=== PATIENT | female | born 1980 | race Two or more races ===

== ENCOUNTER 2017-03-15 21:10 | Inpatient (IN) | payer SELFPAY ==
[~2017-03-15] VITALS: Ht 162.6 cm; Wt 100.0 kg
[2017-03-15] MEDS ORDERED: ACETAMINOPHEN 325 MG TAB PO ONE (21:30)
[2017-03-15 22:02] LABS: Basophils # (auto) 0.1 uL; Basophils % (auto) 0.6 % (0.0-2.0); CONDITION Y; Eosinophils # (auto) 0.1 uL; Eosinophils % (auto) 0.6 % (0.0-7.0); Hematocrit 41.7 % (36.0-46.0); Hemoglobin 14.1 g/dL (12.2-16.2); Lymphocytes # (auto) 2.9 uL; Lymphocytes % (auto) 20.7 % (10.0-50.0); Mean Corpuscular Hemoglobin 30.3 pg (28.0-32.0); Mean Corpuscular Hgb Conc. 33.8 g/dL (32.0-36.0); Mean Corpuscular Volume 89.6 fL (80.0-100.0); Mean Platelet Volume 9.7 fL (7.4-10.4); Monocytes # (auto) 0.5 uL; Monocytes % (auto) 3.7 % (0.0-12.0); Neutrophils # (auto) 10.3 uL; Neutrophils % (auto) 74.4 % (37.0-80.0); Platelet Count (auto) 253 10^3/uL (140-450); Red Cell Distribution Width 12.9 % (11.6-16.0); White Blood Cell 13.8 10^3/uL (4.4-10.8)
[2017-03-15] MEDS ORDERED: SODIUM CHLORIDE 0.9% 1,000 ML IV ONE ×2 (22:15→23:00)
[2017-03-15 22:22] LABS: Albumin 3.7 g/dL (3.4-5.0); BUN/Creatinine Ratio 10.9; Calcium 8.9 mg/dL (8.5-10.1); Potassium 3.6 mmol/L (3.5-5.1)
[2017-03-15 22:25] LABS: INR 0.91 (0.9-1.15); Partial Thromboplastin Time 27.5 sec (22.64-33.71); Prothrombin Time 9.9 sec (9.37-12.3)
[2017-03-15] MEDS ORDERED: VANCOMYCIN 1GM/250ML D5W 250 ML IV ONE (22:30)
[2017-03-15] MEDS ORDERED: ONDANSETRON HCL 4 MG/2 ML VIAL IV ONE (22:30)
[2017-03-15] MEDS ORDERED: HYDROmorphone HCL 2 MG/ML VL IV ONE (22:30)
[2017-03-15] MEDS ORDERED: cefTRIAXone 1GM/50ML D5W 50 ML IV ONE (22:30)
[2017-03-15 22:38] LABS: Bilirubin, Total 1.8 mg/dL (0.2-1.0); Total Protein 8.1 g/dL (6.4-8.2)
[2017-03-16] MEDS ORDERED: LORazepam 0.5 MG TAB PO PRN (03:15)
[2017-03-16] MEDS ORDERED: ONDANSETRON HCL 4 MG/2 ML VIAL IV PRN (03:15)
[2017-03-16] MEDS ORDERED: ACETAMINOPHEN 325 MG TAB PO PRN (03:15)
[2017-03-16 04:49] LABS: Urine Bilirubin Negative (Negative); Urine Blood Negative /uL (Negative); Urine Color Yellow (Yellow); Urine Glucose Normal (Normal); Urine Granular Cast FEW /lpf (0); Urine Ketone Negative (Negative); Urine Mucus FEW (None Seen); Urine Nitrite Negative (Negative); Urine RBC 4 /hpf (0 - 4); Urine Squamous Epithelial Cell FEW /hpf (<5)
[2017-03-16] MEDS: VANCOMYCIN 1GM/250ML D5W 250 ML IV SCH ×3 (07:45→23:45)
[2017-03-16 07:57] LABS: BUN/Creatinine Ratio 13.6; Potassium 3.6 mmol/L (3.5-5.1)
[2017-03-16 08:00] LABS: Bilirubin, Total 0.8 mg/dL (0.2-1.0); Total Protein 6.7 g/dL (6.4-8.2)
[2017-03-16] MEDS: HYDROcodone-ACET 5/325MG TAB PO PRN ×2 (09:00→13:37)
[2017-03-16 09:40] VITALS: BP 121/80
[2017-03-16 09:57] VITALS: BP 121/80
[2017-03-16] MEDS ORDERED: ENOXAPARIN SOD 30 MG/0.3 ML SYRINGE SC SCH (10:00)
[2017-03-16] MEDS: ENOXAPARIN SOD 40 MG/0.4 ML SYRINGE SC SCH (10:00)
[2017-03-16] MEDS: FAMOTIDINE 20 MG TAB PO SCH ×2 (10:00→21:57)
[2017-03-16] MEDS ORDERED: VANCOMYCIN PER PHARMACY 0 MG IV SCH (11:00)
[2017-03-16 12:42] VITALS: BP 120/69
[2017-03-16] MEDS: MORPHINE SULF INJ 2 MG/ML SYRINGE 1ML IV PRN ×2 (13:42→18:30)
[2017-03-16 16:37] VITALS: BP 138/75
[2017-03-16 20:00] VITALS: BP 114/63
[2017-03-16 22:00] VITALS: BP 114/63
[2017-03-16] MEDS ORDERED: cefTRIAXone 1GM/50ML D5W 50 ML IV SCH (22:00)
[2017-03-17] MEDS ORDERED: ZOLPIDEM TARTRATE 5 MG TAB PO PRN (00:30)
[2017-03-17 04:48] VITALS: BP 104/46
[2017-03-17] MEDS: MORPHINE SULF INJ 2 MG/ML SYRINGE 1ML IV PRN (05:29)
[2017-03-17 06:14] LABS: Basophils # (auto) 0 uL; Basophils % (auto) 0.4 % (0.0-2.0); CONDITION Y; Eosinophils # (auto) 0.2 uL; Eosinophils % (auto) 1.8 % (0.0-7.0); Hematocrit 37.7 % (36.0-46.0); Hemoglobin 12.8 g/dL (12.2-16.2); Lymphocytes # (auto) 3.2 uL; Lymphocytes % (auto) 31.4 % (10.0-50.0); Mean Corpuscular Hemoglobin 30.4 pg (28.0-32.0); Mean Corpuscular Volume 89.5 fL (80.0-100.0); Mean Platelet Volume 10.1 fL (7.4-10.4); Monocytes # (auto) 0.6 uL; Monocytes % (auto) 6.1 % (0.0-12.0); Neutrophils # (auto) 6.2 uL; Neutrophils % (auto) 60.3 % (37.0-80.0); Platelet Count (auto) 245 10^3/uL (140-450); Red Cell Distribution Width 12.7 % (11.6-16.0); White Blood Cell 10.3 10^3/uL (4.4-10.8)
[2017-03-17 06:43] LABS: BUN/Creatinine Ratio 10.3; Bilirubin, Total 0.6 mg/dL (0.2-1.0); Calcium 8.4 mg/dL (8.5-10.1); Total Protein 6.7 g/dL (6.4-8.2)
[2017-03-17] MEDS: VANCOMYCIN 1GM/250ML D5W 250 ML IV SCH (08:18)
[2017-03-17 09:00] VITALS: BP 122/61
[2017-03-17] MEDS: FAMOTIDINE 20 MG TAB PO SCH (09:50)
[2017-03-17] MEDS: ENOXAPARIN SOD 40 MG/0.4 ML SYRINGE SC SCH (09:50)
== END 2017-03-17 14:03 | disposition left against medical advice (07) | DRG 603 ==
LOC: ER 21:20 → OVERFLOW 21:21 → EAST 03-16 08:55 → WEST WING 03-16 12:19
PROVIDERS: ADMIT Internal Medicine; ATTEND Internal Medicine Pulmonary Disease
DX: L02.412 Cutaneous abscess of left axilla (principal); L03.112 Cellulitis of left axilla; E66.01 Morbid (severe) obesity due to excess calories; Z68.37 Body mass index [BMI] 37.0-37.9, adult; F17.210 Nicotine dependence, cigarettes, uncomplicated; F32.9 Major depressive disorder, single episode, unspecified; F41.9 Anxiety disorder, unspecified; Z71.89 Other specified counseling; Z53.21 Procedure and treatment not carried out due to patient leaving prior to being seen by health care provider
CPT/HCPCS: 36415; 71010; 76881; 80053; 80202; 80307; 81001; 81025; 82947; 83036; 83605; 84702; 85025; 85610; 85730; 87040; 87077; 87186; 87205; 93005; 96361; 96365; 96367; 96375; J0696; J2405; J7060

== ENCOUNTER 2019-02-14 16:48 | Emergency (ER) | payer OTHER ==
[~2019-02-14] VITALS: Ht 162.6 cm; Wt 65.8 kg
[~2019-02-14 16:48] MED LIST: IBUP400T21 PO
[2019-02-14 19:00] LABS: Basophils # (auto) 0.1 uL; Basophils % (auto) 0.3 % (0.0-2.0); Eosinophils # (auto) 0.1 uL; Eosinophils % (auto) 0.9 % (0.0-7.0); Hematocrit 44.3 % (36.0-46.0); Hemoglobin 14.7 g/dL (12.2-16.2); Lymphocytes # (auto) 4.1 uL; Lymphocytes % (auto) 26.9 % (10.0-50.0); Mean Corpuscular Hemoglobin 30.1 pg (28.0-32.0); Mean Corpuscular Hgb Conc. 33.2 g/dL (32.0-36.0); Mean Corpuscular Volume 90.7 fL (80.0-100.0); Monocytes # (auto) 0.7 uL; Monocytes % (auto) 4.4 % (0.0-12.0); Neutrophils # (auto) 10.3 uL; Neutrophils % (auto) 67.5 % (37.0-80.0); Nucleated Red Blood Cells % 0.1 %; Platelet Count (auto) 281 10^3/uL (140-450); Red Blood Cells 4.88 10^6/uL (4.0-5.20); Red Cell Distribution Width 12.4 % (11.8-14.3); White Blood Cell 15.3 10^3/uL (4.4-10.8)
[2019-02-14 19:08] LABS: Alanine Aminotransferase 26 U/L (13-56); Anion Gap 4 (5-15); Aspartate Aminotransferase 12 U/L (15-37); Blood Urea Nitrogen 10 mg/dL (7-18); Calcium 9.4 mg/dL (8.5-10.1); Carbon Dioxide 28 mmol/L (21-32); Chloride 108 mmol/L (98-107); Glucose 97 mg/dL (74-106); Magnesium 2.6 mg/dL (1.6-2.6); Potassium 4.3 mmol/L (3.5-5.1); Sodium 140 mmol/L (136-145)
[2019-02-14 19:13] LABS: Alkaline Phosphatase 65 U/L (45-117); BUN/Creatinine Ratio 12.8; Bilirubin, Total 0.8 mg/dL (0.2-1.0); GFR African American 107 mL/min; GFR Non-African American 88 mL/min
[2019-02-14] MEDS ORDERED: SODIUM CHLORIDE 0.9% 500 ML IV ONE (19:34)
[2019-02-14] MEDS ORDERED: MORPHINE SULF INJ 2 MG/ML SYRINGE 1ML IV ONE ×2 (19:45→21:15)
[2019-02-14] MEDS ORDERED: IOHEXOL 350 MG/ML 100ML IJ ONE ×2 (19:49→20:48)
[2019-02-14] MEDS ORDERED: cefTRIAXone 1GM/50ML D5W 50 ML IV ONE (20:00)
[2019-02-14] MEDS ORDERED: AZITHROMYCIN 500MG/ 250ML 250 ML IV ONE (20:00)
[2019-02-14 20:17] LABS: INR 0.9 (0.9-1.15); Partial Thromboplastin Time 27.3 sec (23.64-32.05); Prothrombin Time 9.8 sec (9.06-12.60)
[2019-02-14] MEDS ORDERED: ONDANSETRON HCL 4 MG/2 ML VIAL IV ONE ×2 (20:30→22:15)
[2019-02-14] MEDS ORDERED: HYDROmorphone HCL 2 MG/ML VL IV ONE ×2 (22:15→23:45)
[2019-02-14 23:52] VITALS: BP 147/87
== END 2019-02-15 00:35 | disposition home or self-care (01) ==
LOC: ER 16:48
DX: R07.89 Other chest pain (principal); J40 Bronchitis, not specified as acute or chronic; E11.9 Type 2 diabetes mellitus without complications; F17.210 Nicotine dependence, cigarettes, uncomplicated; F11.10 Opioid abuse, uncomplicated
CPT/HCPCS: 36415; 71046; 71275; 80053; 83735; 84484; 84702; 85025; 85379; 85610; 85730; 87040; 93005; 94761; 96365; 96366; 96367; 96375; 96376; 99284; J0456; J0696; J1170; J2270; J2405; J7030; Q9967

== ENCOUNTER 2019-07-07 20:40 | Emergency (ER) | payer OTHER ==
[~2019-07-07] VITALS: Ht 162.6 cm; Wt 80.7 kg
[2019-07-07] MEDS ORDERED: SODIUM CHLORIDE 0.9% 1,000 ML IV ONE (21:30)
[2019-07-07] MEDS ORDERED: ONDANSETRON HCL 4 MG/2 ML VIAL IV ONE (21:30)
[2019-07-07] MEDS ORDERED: HYDROmorphone HCL 2 MG/ML VL IV ONE (21:30)
[2019-07-07 22:02] VITALS: BP 131/45
[2019-07-07] MEDS ORDERED: KETOROLAC TROMETH 30 MG/ML 1ML VIAL IV ONE (23:15)
== END 2019-07-07 23:56 | disposition home or self-care (01) ==
LOC: ER 20:42
DX: G43.909 Migraine, unspecified, not intractable, without status migrainosus (principal); E11.9 Type 2 diabetes mellitus without complications; F17.210 Nicotine dependence, cigarettes, uncomplicated
CPT/HCPCS: 70450; 81025; 96361; 96374; 96375; 99284; J1170; J1885; J2405; J7030

== ENCOUNTER 2019-12-17 01:36 | Emergency (ER) | payer OTHER ==
[~2019-12-17] VITALS: Ht 162.6 cm; Wt 86.2 kg
[2019-12-17 01:52] VITALS: BP 150/103
== END 2019-12-17 02:09 | disposition left against medical advice (07) ==
LOC: ER 01:36
DX: R20.2 Paresthesia of skin (principal); F41.9 Anxiety disorder, unspecified; E11.9 Type 2 diabetes mellitus without complications; F17.210 Nicotine dependence, cigarettes, uncomplicated
CPT/HCPCS: 82962

== ENCOUNTER 2020-07-10 17:40 | Emergency (ER) | payer OTHER ==
[~2020-07-10] VITALS: Ht 162.6 cm; Wt 81.6 kg
[2020-07-10 18:08] VITALS: BP 144/84
[2020-07-10] MEDS ORDERED: IBUPROFEN 800 MG TAB PO ONE (19:00)
== END 2020-07-10 19:08 | disposition home or self-care (01) ==
LOC: ER 17:40
DX: S66.513A Strain of intrinsic muscle, fascia and tendon of left middle finger at wrist and hand level, initial encounter (principal); M25.642 Stiffness of left hand, not elsewhere classified; F17.210 Nicotine dependence, cigarettes, uncomplicated; X58.XXXA Exposure to other specified factors, initial encounter; Y93.89 Activity, other specified; Y92.89 Other specified places as the place of occurrence of the external cause; Y99.8 Other external cause status
CPT/HCPCS: 29130; 73120

== ENCOUNTER 2021-12-07 10:19 | Emergency (ER) | payer OTHER ==
[~2021-12-07] VITALS: Ht 162.6 cm; Wt 95.3 kg
[~2021-12-07 10:19] MED LIST changes: -IBUP400T21 PO; +IBUP400T22 PO
[2021-12-07 11:05] LABS: Basophils # (auto) 0.1 10 ^3/uL (0-0.2); Basophils % (auto) 0.5 % (0.0-2.0); Eosinophils # (auto) 0.3 10 ^3/uL (0-0.8); Eosinophils % (auto) 2.1 % (0.0-7.0); Hematocrit 38.8 % (36.0-46.0); Lymphocytes # (auto) 4.5 10 ^3/uL (0.4-5.4); Lymphocytes % (auto) 36.1 % (10.0-50.0); Mean Corpuscular Hemoglobin 30.7 pg (28.0-32.0); Mean Corpuscular Hgb Conc. 33.6 g/dL (32.0-36.0); Mean Corpuscular Volume 91.6 fL (80.0-100.0); Monocytes # (auto) 0.6 10 ^3/uL (0-1.3); Monocytes % (auto) 5.2 % (0.0-12.0); Neutrophils % (auto) 56.1 % (37.0-80.0); Nucleated Red Blood Cells % 0.2 %; Red Blood Cells 4.24 10^6/uL (4.0-5.20); Red Cell Distribution Width 12.4 % (11.8-14.3); White Blood Cell 12.4 10^3/uL (4.4-10.8)
[2021-12-07 11:23] LABS: Albumin 3.6 g/dL (3.4-5.0); Calcium 9.4 mg/dL (8.5-10.1); Magnesium 2.3 mg/dL (1.6-2.6); Potassium 3.9 mmol/L (3.5-5.1)
[2021-12-07 11:30] LABS: BUN/Creatinine Ratio 13.3; Bilirubin, Total 0.4 mg/dL (0.2-1.0); Total Protein 6.9 g/dL (6.4-8.2)
[2021-12-07 17:02] LABS: Urine Specific Gravity 1.021 (1.001-1.035)
[2021-12-07 17:03] LABS: Urine Bacteria FEW /hpf (None Seen); Urine Blood Negative /uL (Negative); Urine Mucus FEW (None Seen); Urine WBC 2 /hpf (0 - 5)
[2021-12-07 18:00] VITALS: BP 147/79
== END 2021-12-07 18:10 | disposition admitted as inpatient to this hospital (09) ==
LOC: ER 10:19
DX: R07.89 Other chest pain (principal); I10 Essential (primary) hypertension; E11.9 Type 2 diabetes mellitus without complications; F17.210 Nicotine dependence, cigarettes, uncomplicated; Z79.1 Long term (current) use of non-steroidal anti-inflammatories (NSAID)
CPT/HCPCS: 36415; 80053; 81001; 83735; 84484; 85025; 93005

== ENCOUNTER 2022-07-30 23:36 | Emergency (ER) | payer OTHER ==
[~2022-07-30] VITALS: Ht 167.6 cm; Wt 72.5 kg
[2022-07-31 00:25] VITALS: BP 158/73
[2022-07-31] MEDS ORDERED: MORPHINE SULFATE 4 MG/ML SYR/VIAL IV ONE (01:15)
[2022-07-31] MEDS ORDERED: MECLIZINE HCL 25 MG TAB PO ONE (01:15)
[2022-07-31] MEDS ORDERED: SODIUM CHLORIDE 0.9% 1,000 ML IVB ONE (01:15)
[2022-07-31] MEDS ORDERED: ONDANSETRON HCL 4 MG/2 ML VIAL IV ONE (01:15)
== END 2022-07-31 01:41 | disposition left against medical advice (07) ==
LOC: ER 23:36 → EDBD 23:36 → ER 07-31 01:41
DX: R42 Dizziness and giddiness (principal); G43.909 Migraine, unspecified, not intractable, without status migrainosus; I10 Essential (primary) hypertension; E11.9 Type 2 diabetes mellitus without complications; F17.210 Nicotine dependence, cigarettes, uncomplicated; Z79.1 Long term (current) use of non-steroidal anti-inflammatories (NSAID)
CPT/HCPCS: 70450; 93005

== ENCOUNTER 2022-09-08 21:42 | Emergency (ER) | payer OTHER ==
[~2022-09-08] VITALS: Ht 162.6 cm; Wt 91.8 kg
[2022-09-08 22:58] LABS: Urine Amorphous Crystal FEW /hpf (None Seen); Urine Bacteria FEW /hpf (None Seen); Urine Blood Negative /uL (Negative); Urine Mucus FEW (None Seen); Urine Specific Gravity 1.037 (1.001-1.035); Urine WBC 5 /hpf (0 - 5)
[2022-09-08 23:07] LABS: Basophils # (auto) 0.1 10 ^3/uL (0-0.2); Basophils % (auto) 1.1 % (0.0-2.0); Eosinophils # (auto) 0.2 10 ^3/uL (0-0.8); Eosinophils % (auto) 1.6 % (0.0-7.0); Hematocrit 43.2 % (36.0-46.0); Hemoglobin 14.6 g/dL (12.2-16.2); Lymphocytes # (auto) 2.9 10 ^3/uL (0.4-5.4); Lymphocytes % (auto) 22.7 % (10.0-50.0); Mean Corpuscular Hemoglobin 30.2 pg (28.0-32.0); Mean Corpuscular Hgb Conc. 33.7 g/dL (32.0-36.0); Mean Corpuscular Volume 89.8 fL (80.0-100.0); Monocytes # (auto) 0.6 10 ^3/uL (0-1.3); Monocytes % (auto) 4.9 % (0.0-12.0); Neutrophils # (auto) 8.9 10 ^3/uL (1.6-8.6); Neutrophils % (auto) 69.7 % (37.0-80.0); Nucleated Red Blood Cells % 0.2 %; Red Blood Cells 4.82 10^6/uL (4.0-5.20); Red Cell Distribution Width 12.2 % (11.8-14.3); White Blood Cell 12.7 10^3/uL (4.4-10.8)
[2022-09-08 23:26] LABS: Albumin 4.1 g/dL (3.4-5.0); Calcium 9.5 mg/dL (8.5-10.1); Potassium 3.7 mmol/L (3.5-5.1)
[2022-09-08 23:29] LABS: Bilirubin, Total 1.1 mg/dL (0.2-1.0); Total Protein 7.9 g/dL (6.4-8.2)
[2022-09-09] MEDS ORDERED: HYDROcodone-ACET 5/325MG TAB PO ONE
[2022-09-09] MEDS ORDERED: levoFLOXacin 500 MG TAB PO ONE (04:00)
[2022-09-09] MEDS ORDERED: ONDANSETRON ODT 4 MG TAB PO ONE (04:30)
[2022-09-09] MEDS ORDERED: HYDROmorphone HCL 2 MG/ML VL/or syr IM ONE (04:30)
[2022-09-09 04:46] VITALS: BP 136/86
== END 2022-09-09 06:07 | disposition left against medical advice (07) ==
LOC: ER 21:42
DX: N39.0 Urinary tract infection, site not specified (principal); K80.10 Calculus of gallbladder with chronic cholecystitis without obstruction; E80.7 Disorder of bilirubin metabolism, unspecified; F41.9 Anxiety disorder, unspecified; F32.9 Major depressive disorder, single episode, unspecified; E11.8 Type 2 diabetes mellitus with unspecified complications; I10 Essential (primary) hypertension; F17.210 Nicotine dependence, cigarettes, uncomplicated
CPT/HCPCS: 36415; 74176; 76705; 80053; 81001; 81025; 82150; 83690; 85025; 96372; 99284; J1170; Q0162